=== PATIENT | male | born 2000 | race Two or more races ===

== ENCOUNTER 2024-10-11 22:36 | Emergency (ER) | payer MEDICAID, SELFPAY ==
[2024-10-11 22:37] VITALS: BMI 43.8
[2024-10-11 22:45] VITALS: BP 108/71; PULSE 88; RESP 20; TEMP 37.1; O2SAT 97
--- NOTE | 2024-10-11 22:51 | EDRME_ITS ---
Rapid Medical Screening Exam [facility] Arrival date/time: 10/11/24 22:36 24M with history of schizophrenia on multiple meds presents to ED with acute urinary retention and pelvic pain. Chief Complaint: Abdominal Pain Vital signs: Vital Signs Temperature 98.8 F 10/11/24 22:45 Pulse Rate 88 10/11/24 22:45 Respiratory Rate 20 10/11/24 22:45 Blood Pressure 108/71 10/11/24 22:45 Pulse Oximetry (%) 97 10/11/24 22:45 Oxygen Delivery Method Room Air 10/11/24 22:45
[2024-10-11 23:25] LABS: Collection Type, Urine Clean Catch; WBC,Urine 0 /hpf (0-5)
[2024-10-11 23:27] LABS: Basophils % (Auto) 0 % (0-2.5); Eosinophils # (Auto) 0.3 Thou/mm3 (0.0-0.5); Eosinophils % (Auto) 3 % (0-10); Hematocrit 40.2 % (41.0-53.0); Hemoglobin 12.7 g/dL (13.5-16.0); Immature Granulocytes % (Auto) 0 % (0-0); Immature Granulocytes Auto 0.02 Thou/mm3 (0.00-0.00); Lymphocytes # (Auto) 3.5 Thou/mm3 (1.0-4.8); Lymphocytes % (Auto) 35 % (10-50); Mean Corpuscular HGB Conc 31.6 g/dl (31.0-37.0); Mean Corpuscular Hemoglobin 25.4 pg (25.0-35.0); Mean Corpuscular Volume 80 fL (80-100); Monocytes # (Auto) 0.8 Thou/mm3 (0.0-0.8); Monocytes % (Auto) 8 % (0-12); Neutrophils # (Auto) 5.4 Thou/mm3 (1.8-7.7); Neutrophils % (Auto) 54 % (37-80); Nucleated Red Blood Cell % 0 /100 WBC (0); Platelet Count 260 Thou/mm3 (140-440); RDW Standard Deviation 41.7 fL (35.1-43.9); White Blood Count 9.9 Thou/mm3 (3.8-10.6)
[2024-10-11 23:42] LABS: Bilirubin,Urine 1+ (Negative); Blood,Urine Negative (Negative); Clarity,Urine Turbid (Clear/Hazy); Color,Urine Yellow (Lt Yel-Yel); Culture Indicated,Urine Not Indicated; Glucose, Urine Negative (Negative); Hyaline Casts,Urine < 1 /hpf (0-1); Ketones,Urine Trace (Negative); Leukocyte Esterase,Urine Negative (Negative); Nitrite,Urine Negative (Negative); Protein,Urine 1+ (Neg - Trace); RBC,Urine 3 /hpf (0-3); Specific Gravity,Urine 1.043 (1.001-1.035); Squamous Epithelial Cell,Urine 1 /hpf (0-5)
[2024-10-11 23:44] LABS: Alanine Aminotransferase 20 U/L (10-49); Albumin, Serum 4.5 gm/dL (3.5-5.0); Albumin/Globulin Ratio 1.7 (1.2-2.2); Alkaline Phosphatase 96 U/L (46-116); Anion Gap 5 (7-16); Aspartate Amino Transferase 24 U/L (0-34); BUN/Creatinine Ratio 8 Ratio (12-20); Bilirubin,Total 0.3 mg/dL (0.3-1.2); Blood Urea Nitrogen 8 mg/dL (9-23); Calcium 9.8 mg/dL (8.3-10.6); Calcium (Corrected) 9.8 mg/dL (8.5-10.1); Carbon Dioxide 27.1 mMol/L (20.0-31.0); Chloride 106 mMol/L (98-107); Estimated Creatinine Clearance 143.2 mL/min (>60); Globulin 2.6 gm/dL (2.3-3.5); Glucose 108 mg/dL (74-106); Osmolality,Calculated 274 (275-295); Potassium 4.4 mMol/L (3.4-5.1); Sodium 138 mMol/L (136-145); Total Protein 7.1 gm/dL (5.7-8.2); eGFR > 60 See Note
[2024-10-12 02:19] LABS: Amphetamine/Methamp Scrn,U Negative (Negative); Barbiturate Screen,Urine Negative (Negative); Benzodiazepines Screen,Urine Negative (Negative); Benzoylecgonine Screen, Ur Negative (Negative); Fentanyl Screen,Urine Negative (Negative); Opiate Screen,Urine Negative (Negative); THC Screen,Urine Negative (Negative)
--- NOTE | 2024-10-12 02:58 | PD.EDABDPN ---
ED Abdominal Pain RME/HPI General Chief Complaint: Abdominal Pain Stated complaint: ABD PAIN/ UNABLE TO URINATE X 3DAYS Arrival date/time: 10/11/24 22:36 RME / HPI RME / HPI narrative: 10/11/24 22:36 24M with history of schizophrenia on multiple meds presents to ED with acute urinary retention and pelvic pain. ------ Dr. Lenz's Main ED Evaluation: 24yo male with a history of schizophrenia, bipolar disorder brought in by his grandmother presents to the ED for complaints of pelvic pain and urinary retention x 3 days. Patient states he hasn't been able to urinate for the last 3 days. He denies any UTI symptoms, fever, chills, N/V/D, or any other associated symptoms. Denies any falls, injuries or loss of consciousness. No known allergies. Patient states he has not been taking his medications for schizophrenia. Related Data Home Medications ?Medication ?Instructions ?Recorded ?Confirmed Atorvastatin Calcium 1 tab PO HS ##30 05/10/16 Sertraline Hcl 1 tab PO QDAY ##30 05/10/16 lamotrigine 100 mg tablet 1 tab PO BID ##60 05/10/16 lorazepam 1 mg tablet 1 mg PO QDAY PRN SEIZURES #0 tabs 05/10/16 ziprasidone HCl 80 mg capsule 80 mg PO BID #0 caps 05/10/16 (Geodon) Benztropine Mesylate * (COGENTIN *) 2 mg PO HS #0 tabs 03/31/17 divalproex 500 mg tablet,delayed 500 mg PO QDAY #0 tabs 03/31/17 03/27/24 release (Depakote) escitalopram oxalate 20 mg tablet 20 mg PO QDAY #0 tabs 03/31/17 (Lexapro) haloperidol 5 mg tablet 5 mg PO BID #0 tabs 03/31/17 lithium carbonate 600 mg capsule 300 mg PO BID #0 caps 03/31/17 topiramate 25 mg tablet (Topamax) 25 mg PO BID #0 tabs 03/31/17 aripiprazole 5 mg tablet 10 mg PO QDAY 03/27/24 03/27/24 divalproex 500 mg tablet,delayed 1,000 mg PO HS 03/27/24 03/27/24 release levothyroxine 25 mcg tablet 25 mcg PO QDAY 03/27/24 03/27/24 propranolol 20 mg tablet 20 mg PO TID 03/27/24 03/27/24 Allergies Allergy/AdvReac Type Severity Reaction Status Date / Time No Known Allergies Allergy Verified 03/27/24 12:41 Review of Systems Review of Systems Systems Reviewed: All systems reviewed, normal except as documented Narrative Review of Systems: Gen: No fever, no chills, no weight loss, + sweating EYES: No discharge, no visual changes, no pain HEENT: No ear pain, no congestion, no sore throat PULM: No shortness of breath, no cough, no congestion CV: No chest pain, no dyspnea on exertion, no palpitations GI: No nausea, no vomiting, no diarrhea, + pain, no constipation : No frequency, no urgency, no dysuria Musc/skel: No joint pain, no back pain Skin: No rash. Warm and dry. Psyc: No hallucinations, no depression Heme/Lymph: No easy bleeding or bruising tendencies Neuro: No weakness, no headache Past Medical History Past Medical History NEUROLOGIC: Positive Neurological Disorders and Seizures CARDIAC: Positive Cardiac Disorders and Hypercholesterolemia; Negative Congestive Heart Failure RESPIRATORY: Negative Chronic Obstructive Pulmonary Disease (COPD) GASTROINTESTINAL: Negative Gastrointestinal Disorders GENITOURINARY: Negative Genitourinary Disorders or Renal Disease ENDOCRINE: Positive Endocrine Disorders, Diabetes Mellitus Type 2 and Hypothyroidism; Negative Diabetes Mellitus Type 1 HEMATOLOGIC: Negative Blood Disorders, Anemia or Clotting Problems PSYCHO/SOCIAL: Positive Psychiatric Problems, Schizophrenia, Bipolar Disorder, Depression and Behavior Problems OTHER HISTORY: Positive Developmental Delay; Negative Blood Transfusions, Anesthesia Reactions or Cancer Family History FAMILY HISTORY: Negative Family Cardiac Disorders Surgical History SURGICAL: Positive Tonsillectomy Social History SMOKING STATUS: Never smoker ED Exam Narrative Physical exam: GEN. APPEARANCE: Patient is alert awake oriented x3 under no distress, laying down comfortably at 30-45?; does not look ill/ toxic. Patient has good eye contact. Patient is cooperative. Patient is morbidly obese. VITALS: All vitals were reviewed and the pulse ox is 97% on room air, which is normal according to my interpretation. HEENT: Normocephalic, atraumatic and nontender. Pupils are equal and reactive to light and accommodation. Oral mucosa are moist. NECK: Supple, nontender, no meningismus, no JVD. CHEST: Nontender on palpation, no deformity and no crepitus. CARDIOVASCULAR: Heart regular rhythm no murmur or gallop rub or extra beats; not tachycardic. LUNGS: Clear to auscultation bilaterally with symmetrical chest rise. No laboring tachypnea or wheezing. No intercostal subcostal retraction. No rales and no rhonchi. ABDOMEN: Soft, flat, nontender at all, no guarding or rebound tenderness. Only fatty tissue noted at the suprapubic area. There are no abnormal masses palpated. No pulsatile masses or bruits. Active and normal bowel sounds. GENITALIA: No penile discharge. No tenderness on palpation to the suprapubic area. No redness or warmness. RECTAL EXAM: Not done. EXTREMITIES: Nontender. No edema. No cyanosis. Patient is able to move all 4 extremities well. SKIN: Warm and dry, no rashes noted. MUSCULOSKELETAL: No lumbar or midline bony tenderness. There is no CVA tenderness. No paraspinal muscle spasm or tenderness. NEURO: Cranial nerves II through XII grossly intact. There is no focalization. GCS is 15. PSYCHIATRIC: Patient is in normal mood and affect, cooperative. LYMPHATICS: No major lymphadenopathy noted. Course Quality Measures none Orders Category Date Time Status Daigle to Leg Bag Routine Care 10/11/24 22:51 Ordered In and Out Catheter X1 Care 10/11/24 22:50 Active CBC Stat Lab 10/11/24 23:19 Completed CMP [Comprehensive Metabolic Panel] Stat Lab 10/11/24 23:19 Completed Drug Screen,Urine Stat Lab 10/11/24 23:03 Completed Urinalysis, C/S if Indicated Stat Lab 10/11/24 23:03 Completed Vital Signs Vital signs: Vital Signs Temperature 98.8 F 10/11/24 22:45 Pulse Rate 88 10/11/24 22:45 Respiratory Rate 20 10/11/24 22:45 Blood Pressure 108/71 10/11/24 22:45 Pulse Oximetry (%) 97 10/11/24 22:45 Oxygen Delivery Method Room Air 10/11/24 22:45 Abdominal Pain MDM MDM Narrative MDM Narrative:: Scribe Attestation: 10/12/24 - Olga Mckeon am scribing for and in the presence of Dr. Lenz. Patient is a friendly schizophrenic morbidly obese young man accompanied by his grandmother stating that he has been having difficulty to urinate for the last 3 days. For that reason and also because he has been taking Tylenol, he decided not to take his medications for schizophrenia anymore. I told him that regardless of the medications that he takes, he needs to continue taking his medications for schizophrenia and bipolar. He and his grandmother understood me very well about that. Patient is here because he complains of pain in the lower abdomen at the pelvic area stating that he is unable to urinate for the last 3 days. However, he urinated well here without any difficulty and his urinalysis is completely normal. Also, patient denies any typical UTI symptoms such as hurting and burning on urination. His physical exam shows no signs of infection in the lower abdomen and is only fatty tissue. Therefore I gave him reassurance that everything is good and he needs to restart taking his medications. Patient is happy and he will be going home. His CBC and chemistries are all normal levels. Provider Notation: Although this document has been carefully reviewed, there may still be some phonetic and other typographical errors. These errors are purely grammatical due to imperfections in the software program and should not be construed in any way to compromise the substance of the patient's medical care during this visit. Patient data External records reviewed:: [facility] previous records (Per chart review, patient was seen here on 07/08/24 for a puncture of the right foot.) Clinical information provided by:: patient Social determinants that could affect healthcare access:: mental health Patient has the following chronic illnesses:: seizures, DM, schizophrenia, bipolar disorder How is presenting disease/condition affected by chronic disease/condition?: uneffected by Evaluation data The following diagnostics were reviewed and interpreted by me:: lab results Lab and/or radiology exams considered but not ordered:: none Interpretation Summary: See above under MDM narrative. Medications / Prescriptions Medications or Prescriptions considered but not ordered:: none Medication administrations:: see above, if any Consultations Consultation(s) initiated? (list below): No Diagnosis Differential diagnosis abdominal pain: other (UTI, gonorrhea, anxiety, noncompliance with medications) Most likely diagnosis given after review of the tests above:: see below Admission Indicated Admission indicated?: not indicated Admission Request Was there a request for admission?: No Disposition Plan Disposition Plan: Discharge Discharge Attestation Discharge Attestation: The patient and all family members were given an opportunity to ask questions and understood the discharge instructions. Discharge instructions specifically effects, indications for sooner follow up or return to the emergency department, and the expected course of current diagnosis. Patient condition: Stable Discharge Plan Plan Patient Disposition: HOME (Self Care) Prescriptions/Referrals Prescriptions/Med Rec: No Action flu vacc [id number] 6mos up(PF) 60 mcg (15 mcg x 4)/0.5 mL syringe 0.5 ml IM ONCE Qty: 0.5 0RF Atorvastatin Calcium 10 MG tablet 1 tab PO HS Qty: 30 ziprasidone HCl [Geodon] 80 MG capsule 80 mg PO BID Qty: 0 lorazepam 1 MG tablet 1 mg PO QDAY PRN (Reason: SEIZURES) Qty: 0 lamotrigine 100 MG tablet 1 tab PO BID Qty: 60 Sertraline Hcl 100 MG tablet 1 tab PO QDAY Qty: 30 haloperidol 5 MG tablet 5 mg PO BID Qty: 0 escitalopram oxalate [Lexapro] 20 MG tablet 20 mg PO QDAY Qty: 0 lithium carbonate 600 MG capsule 300 mg PO BID Qty: 0 topiramate [Topamax] 25 MG tablet 25 mg PO BID Qty: 0 divalproex [Depakote] 500 MG tablet,delayed release (DR/EC) 500 mg PO QDAY Qty: 0 Benztropine Mesylate * (COGENTIN *) 2 MG tablet 2 mg PO HS Qty: 0 divalproex 500 mg tablet,delayed release (DR/EC) 1,000 mg PO HS levothyroxine 25 mcg tablet 25 mcg PO QDAY aripiprazole 5 mg tablet 10 mg PO QDAY propranolol 20 mg tablet 20 mg PO TID Referrals: Jose Pruett [Primary Care Provider] - 10/15/24 10:00 am Problem List Clinical Impression: Abdominal pain, Anxiety Patient/Caregiver Discharge Instructions Education Materials: Anxiety Disorders Tx Therapy Additional Instructions: Start taking your medications for schizophrenia and bipolar immediately. Be sure to take them on a daily basis without missing them. Follow-up with your doctor on Tuesday for recheck Print Language: Malian Stand Alone Forms: Celia Award Info., Patient Portal Info Letter
[2024-10-12 03:58] VITALS: BP 118/77; PULSE 77; RESP 16; TEMP 36.8; O2SAT 99
== END 2024-10-12 03:57 | disposition home or self-care (01) ==
PROVIDERS: Physician Assistant; Emergency Provider Emergency Medicine; PCP Physician Assistant
DX: R10.2 Pelvic and perineal pain (principal); F41.9 Anxiety disorder, unspecified; R33.9 Retention of urine, unspecified; F20.9 Schizophrenia, unspecified; F31.9 Bipolar disorder, unspecified; E03.9 Hypothyroidism, unspecified; E11.9 Type 2 diabetes mellitus without complications; E66.01 Morbid (severe) obesity due to excess calories; Z68.41 Body mass index [BMI] 40.0-44.9, adult; T43.506A Underdosing of unspecified antipsychotics and neuroleptics, initial encounter; Z91.128 Patient's intentional underdosing of medication regimen for other reason
CPT/HCPCS: 36415; 80053; 80307; 81001; 85025; 99283